=== PATIENT | male | born 1990 | race American Indian/Alaskan Native ===

== ENCOUNTER 2020-07-22 23:32 | Emergency (ER) | payer BC ==
[2020-07-23 02:10] LABS: Basophils % (Auto) 0.7 % (0.0-1.8); Eosinophils # (Auto) 0.1 K/mm3 (0.0-0.4); Eosinophils % (Auto) 1.4 % (0.0-4.3); Hematocrit 41.4 % (35.5-45.6); Hemoglobin 13.9 gm/dl (11.8-15.2); Lymphocytes # (Auto) 1.9 K/mm3 (1.2-5.4); Lymphocytes % (Auto) 32.4 % (13.4-35.0); Mean Corpuscular HGB Conc 34 % (32-34); Mean Corpuscular Volume 86 fl (84-94); Monocytes # (Auto) 0.5 K/mm3 (0.0-0.8); Monocytes % (Auto) 9.3 % (0.0-7.3); Platelet Count 504 K/mm3 (140-440); Red Blood Count 4.83 M/mm3 (3.65-5.03); Red Cell Distribution Width 13.8 % (13.2-15.2)
[2020-07-23 02:28] LABS: BUN/Creatinine Ratio 7; Blood Urea Nitrogen 7 mg/dL (9-20); Calcium 9.8 mg/dL (8.4-10.2); Hemolysis Index 10
--- NOTE | 2020-07-23 02:35 | XRay Report ---
CHEST 1 VIEW, 07/23/2020 1:48 AM CLINICAL INFORMATION/INDICATION: Chest pain COMPARISON: Chest radiograph, 07/03/2020 FINDINGS: SUPPORT DEVICES: None. HEART: The cardiac silhouette is normal in size. LUNGS/PLEURA: The lungs are clear of focal airspace disease or significant pleural effusion. ADDITIONAL FINDINGS: No additional acute findings. IMPRESSION: 1. No evidence of acute cardiopulmonary process. Signer Name: Trinh Jacobs MD Signed: 07/23/2020 2:31 AM Workstation Name: [id number]
[2020-07-23 08:43] VITALS: BP 159/98
--- NOTE | 2020-07-23 09:02 | Emergency Department Report ---
ED General Adult HPI - General Chief complaint: Neuro Symptoms/Deficit Stated complaint: NUMBNESS TO BOTH HANDS/LIGHT HEADED/NAUSEA Time Seen by Provider: 07/23/20 08:58 Source: patient Mode of arrival: Ambulatory Limitations: No Limitations - History of Present Illness Initial comments: This is a 30-year-old pleasant man who states he thinks he had a panic attack last night. He reports breathing fast and having tingling in both his hands. Resolved after several minutes. He does admit to increased stress. He is recently had a cardiac catheterization. 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 He states he feels fine now. He did not take his blood pressure medicine this morning but has not run out. He denies any focal neurological change or headache. He denies any chest pain dyspnea sweating or any other symptoms. Cardiology consultation earlier this month: Cardiac catheterization completed via the right radial approach, no complications. We found a small vessel occlusion of the distal circumflex, not suitable for revascularization. The coronaries are otherwise widely patent. Left ventricular ejection fraction was 45 to 50%. Patient is recommended for aggressive risk factor modification and medical therapy for hypertension, diabetes and hyperlipidemia. Original Note: Assessment and Plan Elevated troponin levels Morbidly obese Chronic hypertension Uncontrolled diabetes glucose level over 300 and A1c of 12. He denies any prior known history of diabetes Elevated triglyceride level of 774, and total cholesterol 392. An echo this admission shows a mildly dilated LV, ejection fraction 40-45%. Severity scale (0 -10): 0 - Related Data Previous Rx's Medication Instructions Recorded Last Taken Type Acetaminophen [Acetaminophen TAB] 650 mg PO Q4H PRN tablet 07/04/20 Unknown Rx Aspirin EC [Ecotrin] 325 mg PO QDAY #30 tablet 07/04/20 Unknown Rx AtorvaSTATin [Lipitor] 40 mg PO QHS #30 tab 07/04/20 Unknown Rx Doxazosin [Cardura] 2 mg PO BID #60 tablet 07/04/20 Unknown Rx Metformin HCl [metFORMIN] 1,000 mg PO BID #60 tablet 07/04/20 Unknown Rx NIFEdipine XL [Procardia Xl] 60 mg PO QDAY #30 tablet 07/04/20 Unknown Rx Valsartan [Diovan] 320 mg PO BID #30 tablet 07/04/20 Unknown Rx gemfibroziL [Lopid] 600 mg PO BID #60 tablet 07/04/20 Unknown Rx metFORMIN [Glucophage] 850 mg PO BIDDIAB #60 tablet 07/04/20 Unknown Rx Allergies Allergy/AdvReac Type Severity Reaction Status Date / Time No Known Allergies Allergy Unverified 02/29/16 08:35 ED Review of Systems ROS: Stated complaint: NUMBNESS TO BOTH HANDS/LIGHT HEADED/NAUSEA Other details as noted in HPI Constitutional: denies: chills, fever Eyes: denies: eye pain, eye discharge, vision change ENT: denies: ear pain, throat pain Respiratory: denies: cough, shortness of breath, wheezing Cardiovascular: denies: chest pain, palpitations Endocrine: no symptoms reported Gastrointestinal: denies: abdominal pain, nausea, diarrhea Genitourinary: denies: urgency, dysuria Musculoskeletal: denies: back pain, joint swelling, arthralgia Skin: denies: rash, lesions Neurological: denies: headache, weakness, paresthesias Psychiatric: denies: anxiety, depression Hematological/Lymphatic: denies: easy bleeding, easy bruising Other: As per HPI ED Past Medical Hx - Past Medical History Previous Medical History?: Yes Hx Hypertension: Yes Hx Congestive Heart Failure: No Hx Diabetes: No Hx Asthma: No Hx COPD: No Hx HIV: No Additional medical history: Right knee pain/injury in college, Morbid Obesity, Cardiac Cath 06/2020 with occlusion beng treated by medication - Surgical History Past Surgical History?: Yes Hx Pacemaker: No Additional Surgical History: Cardiac Cath 06/2020 occlusion being treated with medication - Social History Smoking Status: Never Smoker - Medications Home Medications: Home Medications Medication Instructions Recorded Confirmed Last Taken Type Acetaminophen [Acetaminophen TAB] 650 mg PO Q4H PRN tablet 07/04/20 Unknown Rx Aspirin EC [Ecotrin] 325 mg PO QDAY #30 tablet 07/04/20 Unknown Rx AtorvaSTATin [Lipitor] 40 mg PO QHS #30 tab 07/04/20 Unknown Rx Doxazosin [Cardura] 2 mg PO BID #60 tablet 07/04/20 Unknown Rx Metformin HCl [metFORMIN] 1,000 mg PO BID #60 tablet 07/04/20 Unknown Rx NIFEdipine XL [Procardia Xl] 60 mg PO QDAY #30 tablet 07/04/20 Unknown Rx Valsartan [Diovan] 320 mg PO BID #30 tablet 07/04/20 Unknown Rx gemfibroziL [Lopid] 600 mg PO BID #60 tablet 07/04/20 Unknown Rx metFORMIN [Glucophage] 850 mg PO BIDDIAB #60 tablet 07/04/20 Unknown Rx ED Physical Exam - General Limitations: No Limitations General appearance: alert, in no apparent distress - Head Head exam: Present: atraumatic, normocephalic - Eye Eye exam: Present: normal appearance. Absent: scleral icterus - ENT ENT exam: Present: mucous membranes moist - Neck Neck exam: Present: normal inspection - Respiratory Respiratory exam: Present: normal lung sounds bilaterally. Absent: respiratory distress - Cardiovascular Cardiovascular Exam: Present: regular rate, normal rhythm. Absent: systolic murmur, diastolic murmur, rubs, gallop - GI/Abdominal GI/Abdominal exam: Present: soft, normal bowel sounds. Absent: distended, tenderness, guarding, rebound, rigid - Rectal Rectal exam: Present: deferred - Extremities Exam Extremities exam: Present: normal inspection - Back Exam Back exam: Present: normal inspection - Neurological Exam Neurological exam: Present: alert, oriented X3, CN II-XII intact. Absent: motor sensory deficit - Psychiatric Psychiatric exam: Present: normal affect, normal mood - Skin Skin exam: Present: warm, dry, intact, normal color. Absent: rash ED Course Vital Signs 07/23/20 07/23/20 00:48 08:42 Temperature 98.0 F Pulse Rate 94 H 82 Respiratory 18 20 Rate Blood Pressure 174/119 Blood Pressure 159/98 [Left] O2 Sat by Pulse 100 99 Oximetry ED Medical Decision Making - Lab Data Result diagrams: 07/23/20 01:26 07/23/20 01:26 Laboratory Results - last 24 hr 07/23/20 07/23/20 07/23/20 01:26 01:26 08:09 WBC 5.7 RBC 4.83 Hgb 13.9 Hct 41.4 MCV 86 MCH 29 MCHC 34 RDW 13.8 Plt Count 504 H Lymph % (Auto) 32.4 [place] % (Auto) 9.3 H Eos % (Auto) 1.4 Baso % (Auto) 0.7 Lymph # 1.9 [place] # 0.5 Eos # 0.1 Baso # 0.0 Seg Neutrophils % 56.2 Seg Neutrophils # 3.2 Sodium 137 Potassium 4.4 Chloride 99.0 Carbon Dioxide 20 L Anion Gap 22 BUN 7 L Creatinine 1.0 Estimated GFR > 60 BUN/Creatinine Ratio 7 Glucose 118 H Calcium 9.8 Troponin T < 0.010 < 0.010 - EKG Data -: EKG Interpreted by Me EKG shows normal: sinus rhythm, axis, intervals, QRS complexes, ST-T waves - EKG Data Interpretation: other (Intraventricular conduction delay. No acute ischemic changes.) Compared to previous and no change seen 07/23/20 09:11 Critical care attestation.: If time is entered above; I have spent that time in minutes in the direct care of this critically ill patient, excluding procedure time. ED Disposition Clinical Impression: Acute anxiety Disposition: DC-01 TO HOME OR SELFCARE Is pt being admited?: No Does the pt Need Aspirin: No Condition: Stable Instructions: Anxiety (ED) Additional Instructions: Return to the emergency department for any tingling or numbness that does not go away. Return to the emergency department for any shortness of breath that is persistent. Return for any acute change or problem. Follow-up with your usual care providers. Referrals: PRIMARY CARE, [Primary Care Provider] - 3-5 Days Time of Disposition: 09:16
== END 2020-07-23 09:29 | disposition home or self-care (01) ==
LOC: ED 23:32
DX: F41.9 Anxiety disorder, unspecified (principal); I10 Essential (primary) hypertension; Z79.899 Other long term (current) drug therapy; Z98.890 Other specified postprocedural states
CPT/HCPCS: 36415; 71045; 80048; 84484; 85025; 93005

== ENCOUNTER 2020-11-01 12:12 | Emergency (ER) | payer BC ==
[2020-11-01] MEDS ORDERED: ASPIRIN 325 MG TAB PO ONE (12:19)
--- NOTE | 2020-11-01 12:52 | XRay Report ---
CHEST 1 VIEW INDICATION: Chest Pain. COMPARISON: 07/23/2020 FINDINGS: Support devices: None. Heart: Within normal limits. Lungs/Pleura: No acute air space or interstitial disease. Additional findings: None. IMPRESSION: No acute findings. Signer Name: Tom Membreno Jr, MD Signed: 11/01/2020 12:47 PM Workstation Name: [id number]
[2020-11-01 13:03] LABS: Basophils # (Auto) 0.1 K/mm3 (0.0-0.1); Basophils % (Auto) 1.1 % (0.0-1.8); Eosinophils # (Auto) 0.1 K/mm3 (0.0-0.4); Eosinophils % (Auto) 1.2 % (0.0-4.3); Hematocrit 44.6 % (35.5-45.6); Hemoglobin 14.7 gm/dl (11.8-15.2); Lymphocytes # (Auto) 1.5 K/mm3 (1.2-5.4); Lymphocytes % (Auto) 26.4 % (13.4-35.0); Mean Corpuscular HGB Conc 33 % (32-34); Mean Corpuscular Volume 89 fl (84-94); Monocytes # (Auto) 0.4 K/mm3 (0.0-0.8); Platelet Count 412 K/mm3 (140-440); Red Blood Count 5.03 M/mm3 (3.65-5.03); Red Cell Distribution Width 16.6 % (13.2-15.2)
[2020-11-01 14:08] LABS: Alanine Aminotransferase 92 units/L (7-56); Albumin 4.5 g/dL (3.9-5); BUN/Creatinine Ratio 6; Blood Urea Nitrogen 7 mg/dL (9-20); Calcium 10.3 mg/dL (8.4-10.2); Hemolysis Index 4
--- NOTE | 2020-11-01 16:01 | Emergency Department Report ---
HPI - General Chief Complaint: Arrhythmia/Palpitations Time Seen by Provider: 11/01/20 12:21 - HPI HPI: Room 26 The patient is a 30-year-old male present with a chief complaint of palpitations. The patient states last night while at rest he noticed his heart rate was elevated. Patient states he took a Benadryl because he thought it was anxiety. Patient states he developed shaking chills and then went to sleep. Patient states when he awakened this morning he noticed his heart rate was still elevated so he went to an urgent care facility when turn sent him here for evaluation. Patient denies shortness of breath or cough. Patient denies fever nausea vomiting or diarrhea. The patient states last night he had occasional episodes of feeling a slight pressure in different areas of his chest which she assumed was gas because it felt like a bubble and only lasted seconds. Patient has not had any episodes of this discomfort since last night. When asked how he is feeling now the patient states he feels fine ED Past Medical Hx - Past Medical History Hx Hypertension: Yes Hx Diabetes: Yes Additional medical history: Right knee pain/injury in college, Morbid Obesity, Cardiac Cath 06/2020 with occlusion beng treated by medication - Surgical History Hx Pacemaker: No Additional Surgical History: Cardiac Cath 06/2020 occlusion being treated with medication - Family History Family history: no significant - Social History Smoking Status: Never Smoker Substance Use Type: None (Denies illicit drug use) - Medications Home Medications: Home Medications Medication Instructions Recorded Confirmed Last Taken Type Acetaminophen [Acetaminophen TAB] 650 mg PO Q4H PRN tablet 07/04/20 Unknown Rx Aspirin EC [Ecotrin] 325 mg PO QDAY #30 tablet 07/04/20 Unknown Rx AtorvaSTATin [Lipitor] 40 mg PO QHS #30 tab 07/04/20 Unknown Rx Doxazosin [Cardura] 2 mg PO BID #60 tablet 07/04/20 Unknown Rx Metformin HCl [metFORMIN] 1,000 mg PO BID #60 tablet 07/04/20 Unknown Rx NIFEdipine XL [Procardia Xl] 60 mg PO QDAY #30 tablet 07/04/20 Unknown Rx Valsartan [Diovan] 320 mg PO BID #30 tablet 07/04/20 Unknown Rx gemfibroziL [Lopid] 600 mg PO BID #60 tablet 07/04/20 Unknown Rx metFORMIN [Glucophage] 850 mg PO BIDDIAB #60 tablet 07/04/20 Unknown Rx Metoprolol Succinate [Toprol Xl] 25 mg PO QDAY #90 tab.er.24h 11/01/20 Unknown Rx ED Review of Systems ROS: Stated complaint: SENT BY [facility] Other details as noted in HPI Constitutional: denies: fever Eyes: denies: eye pain ENT: denies: throat pain Respiratory: denies: cough, shortness of breath Cardiovascular: denies: chest pain Endocrine: no symptoms reported Gastrointestinal: denies: nausea, vomiting, diarrhea Genitourinary: denies: dysuria Musculoskeletal: denies: back pain Neurological: denies: headache Physical Exam - Physical Exam Vital Signs: Vital Signs 11/01/20 11/01/20 11/01/20 12: 14:45 15:15 Temperature 98.1 F Pulse Rate 114 H 99 H 89 Respiratory 18 22 20 Rate Blood Pressure 137/97 159/105 155/99 O2 Sat by Pulse 99 100 100 Oximetry Physical Exam: GENERAL: The patient is well-developed well-nourished male lying on stretcher not appearing to be in acute distress. [] HEENT: Normocephalic. Atraumatic. Extraocular motions are intact. Patient has moist mucous membranes. NECK: Supple. Trachea midline CHEST/LUNGS: Clear to auscultation. There is no respiratory distress noted. HEART/CARDIOVASCULAR: Regular. There is tachycardia. There is no gallop rub or murmur. ABDOMEN: Abdomen is soft, nontender. Patient has normal bowel sounds. There is no abdominal distention. SKIN: There is no rash. There is no edema. There is no diaphoresis. NEURO: The patient is awake, alert, and oriented. The patient is cooperative. The patient has normal speech MUSCULOSKELETAL: There is no evidence of acute injury. ED Course Vital Signs 11/01/20 11/01/20 11/01/20 12:20 14:45 15:15 Temperature 98.1 F Pulse Rate 114 H 99 H 89 Respiratory 18 22 20 Rate Blood Pressure 137/97 159/105 155/99 O2 Sat by Pulse 99 100 100 Oximetry - Consultations Consultation #1: 11/01/20 17:21 Case discussed with fire loss prevention engineer Dr. Migeul Ku-patient may be discharged home. Recommends initiating metoprolol succinate 25 mg daily and follow-up in the office in 1-2 weeks ED Medical Decision Making - Lab Data Result diagrams: 11/01/20 12:37 11/01/20 12:37 Laboratory Tests 11/01/20 11/01/20 11/01/20 12:37 12:37 12:37 WBC 5.6 RBC 5.03 Hgb 14.7 Hct 44.6 MCV 89 MCH 29 MCHC 33 RDW 16.6 H Plt Count 412 Lymph % (Auto) 26.4 [place] % (Auto) 8.0 H Eos % (Auto) 1.2 Baso % (Auto) 1.1 Lymph # (Auto) 1.5 [place] # (Auto) 0.4 Eos # (Auto) 0.1 Baso # (Auto) 0.1 Seg Neutrophils % 63.3 Seg Neutrophils # 3.5 D-Dimer Sodium 141 Potassium 3.7 Chloride 104.4 Carbon Dioxide 20 L Anion Gap 20 BUN 7 L Creatinine 1.1 Estimated GFR > 60 BUN/Creatinine Ratio 6 Glucose 83 Calcium 10.3 H Total Bilirubin 0.50 AST 57 H ALT 92 H Alkaline Phosphatase 76 Troponin T < 0.010 NT-Pro-B Natriuret Pep Total Protein 8.2 Albumin 4.5 Albumin/Globulin Ratio 1.2 Urine Bilirubin Urine RBC (Auto) 11/01/20 11/01/20 11/01/20 15:30 15:50 15:50 WBC RBC Hgb Hct MCV MCH MCHC RDW Plt Count Lymph % (Auto) [place] % (Auto) Eos % (Auto) Baso % (Auto) Lymph # (Auto) [place] # (Auto) Eos # (Auto) Baso # (Auto) Seg Neutrophils % Seg Neutrophils # D-Dimer < 135.00 Sodium Potassium Chloride Carbon Dioxide Anion Gap BUN Creatinine Estimated GFR BUN/Creatinine Ratio Glucose Calcium Total Bilirubin AST ALT Alkaline Phosphatase Troponin T < 0.010 NT-Pro-B Natriuret Pep 29.66 Total Protein Albumin Albumin/Globulin Ratio Urine Bilirubin Urine RBC (Auto) 11/01/20 16:38 WBC RBC Hgb Hct MCV MCH MCHC RDW Plt Count Lymph % (Auto) [place] % (Auto) Eos % (Auto) Baso % (Auto) Lymph # (Auto) [place] # (Auto) Eos # (Auto) Baso # (Auto) Seg Neutrophils % Seg Neutrophils # D-Dimer Sodium Potassium Chloride Carbon Dioxide Anion Gap BUN Creatinine Estimated GFR BUN/Creatinine Ratio Glucose Calcium Total Bilirubin AST ALT Alkaline Phosphatase Troponin T NT-Pro-B Natriuret Pep Total Protein Albumin Albumin/Globulin Ratio Urine Bilirubin Neg Urine RBC (Auto) 2.0 - EKG Data -: EKG Interpreted by Me EKG shows normal: sinus rhythm Rate: normal - EKG Data When compared to previous EKG there are: changes noted Interpretation: nonspecific ST-T wave aundrea (T wave inversion lead V6) - Radiology Data Radiology results: report reviewed (Chest x-ray), image reviewed (Chest x-ray) interpreted by me: Chest x-ray-no focal infiltrates, no pneumothorax, no foreign body [facility] [address] [place] [address] XRay Report Signed Patient: BHUMIKA TRUJILLO MR#: [id number] : 1990 Acct:[id number] Age/Sex: 30 / M ADM Date: 11/01/20 Loc: ED Attending Dr: Ordering Physician: ED MD SANDIP Date of Service: 11/01/20 Procedure(s): XR chest 1V ap Accession Number(s): [id number] cc: ED MD SANDIP Fluoro Time In Minutes: CHEST 1 VIEW INDICATION: Chest Pain. COMPARISON: 07/23/2020 FINDINGS: Support devices: None. Heart: Within normal limits. Lungs/Pleura: No acute air space or interstitial disease. Additional findings: None. IMPRESSION: No acute findings. Signer Name: Tom Membreno Jr, MD Signed: 11/01/2020 12:47 PM Workstation Name: [id number] Transcribed By: TTR Dictated By: TOM MEMBRENO JR, MD Electronically Authenticated By: TOM MEMBRENO JR, MD Signed Date/Time: 11/01/201246 DD/ 46 TD/TT: - Differential Diagnosis PE, pneumonia, CHF, dysrhythmia, atrial fibrillation Critical care attestation.: If time is entered above; I have spent that time in minutes in the direct care of this critically ill patient, excluding procedure time. ED Disposition Clinical Impression: Tachycardia Disposition: DC-01 TO HOME OR SELFCARE Is pt being admited?: No Does the pt Need Aspirin: No Condition: Stable Additional Instructions: Return to the emergency department should you develop worsening symptoms, inability to tolerate food or liquids, high fever or any other concerns Prescriptions: Metoprolol Succinate [Toprol Xl] 25 mg PO QDAY #90 tab.er.24h Referrals: WALTER MALIK MD [Primary Care Provider] - 3-5 Days SAROJ KU MD [Staff Physician] - 7-10 days (Dr. Ku is a fire loss prevention engineer. Please follow-up with him for further evaluation) Time of Disposition: 17:24
[2020-11-01 17:22] LABS: Bilirubin,Urine NEG (Negative); Blood,Urine NEG (Negative); Color,Urine Yellow (Yellow); Mucus,Urine FEW /HPF; Urobilinogen,Urine < 2.0 mg/dL (<2.0); WBC,Urine < 1.0 /HPF (0.0-6.0)
[2020-11-01 17:28] VITALS: BP 162/98
== END 2020-11-01 17:30 | disposition home or self-care (01) ==
LOC: ED 12:12
DX: R00.0 Tachycardia, unspecified (principal); I10 Essential (primary) hypertension; E11.9 Type 2 diabetes mellitus without complications; Z98.890 Other specified postprocedural states; Z79.899 Other long term (current) drug therapy; Z79.84 Long term (current) use of oral hypoglycemic drugs
CPT/HCPCS: 36415; 71045; 80053; 81001; 83880; 84484; 85025; 85379; 93005